=== PATIENT | male | born 1945 ===

== ENCOUNTER → 2017-09-27 06:53 | Day surgery (SDC) | payer MEDICARE ==
[~2017-09-27 06:53] MED LIST: Flumazenil* 0.1 MG/ML 5 ML MDV ONE; Lidocaine 1% INJ* 10 MG/ML 30 ML SDV ONE; Midazolam* 1 MG/ML 5 ML VIAL (5 MG) ONE; Naloxone* 0.4 MG/ML 1 ML VIAL ONE; ceFAZolin 1 GM/10 ML flush(*) SYRINGE for pocket flush (cardiology) FLUSH ONE; ceFAZolin 2 GM PREMIX (*) 2 GM/50 ML BAG IVPB ONE; fentaNYL* 50 MCG/ML 2 ML VIAL (100 MCG VIAL) ONE
--- NOTE | 2017-09-28 12:08 | OP ---
CC: Dr. Justyna Gallegos OPERATIVE REPORT: DATE OF OPERATION: 09/27/17 DATE OF : 47 SURGEON: Shahram Everett MD ANESTHESIA: Local anesthesia with conscious sedation. PRE-OP DIAGNOSIS: Ischemic cardiomyopathy, implantable cardioverter-defibrillator at elective replac ement indicator. POST-OP DIAGNOSIS: Ischemic cardiomyopathy, implantable cardioverter-defibrillator at elective repla cement indicator. OPERATIVE PROCEDURE: ICD generator change. INDICATIONS: The patient is a 71-year-old gentleman with a history of ischemic cardiomyopathy, histo ry of ICD implantation in 2008. The patient has been followed closely by my office and was found to have reached elective replacement indicator. Generator change was recommended. ESTIMATED BLOOD LOSS: Nil. COMPLICATIONS: None. DESCRIPTION OF PROCEDURE: The patient was brought to the procedure room in a fasting state. Informe d consent had been obtained prior to the procedure. All labs had been reviewed. The patient was clyde michaela supine on the procedure table. His left deltopectoral area was cleaned and draped in the usual f ashion. 1% lidocaine was used for local anesthesia. A 4-cm incision was made in the superior aspect of the ICD and blunt dissection was carried down to the fibrous sheath. The fibrous sheath was open ed and the device was explanted from the pocket. The device was detached from the ventricular lead. The ventricular lead was tested and found to be functioning normally. Pocket was flushed with antib iotic-infused normal saline. A new generator was attached appropriately to the ventricular lead. The new generator is a [employer] model [id number], serial number [id number]. The device was placed in t he pocket. The surgical incision was closed in 3 layers. The patient tolerated the procedure well w ith no complications. The explanted device is a [employer] model [id number], serial number [id number]. [id number]/[facility] #: [id number]
== END | disposition home or self-care (01) ==
LOC: CHICATH 06:53
PROVIDERS: ATTEND Specialist
DX: Z45.010 Encounter for checking and testing of cardiac pacemaker pulse generator [battery] (principal); I25.5 Ischemic cardiomyopathy; I25.810 Atherosclerosis of coronary artery bypass graft(s) without angina pectoris; I10 Essential (primary) hypertension; Z87.891 Personal history of nicotine dependence
CPT/HCPCS: 33249; 88300; 99156; 99157; C1722; J0690; J2250; J2310; J3010